=== PATIENT | male | born 1985 | race Caucasian/White ===

== ENCOUNTER 2019-04-25 15:12 | Emergency (ER) | payer OTHER ==
[~2019-04-25] VITALS: Ht 182.9 cm; Wt 102.1 kg
[2019-04-25 17:01] VITALS: BP 128/80
== END 2019-04-25 17:01 | disposition home or self-care (01) ==
LOC: M.ERS 15:12
DX: S62.617A Displaced fracture of proximal phalanx of left little finger, initial encounter for closed fracture (principal); W21.05XA Struck by basketball, initial encounter; Y93.89 Activity, other specified; Y92.89 Other specified places as the place of occurrence of the external cause; Y99.8 Other external cause status

== ENCOUNTER 2019-08-01 20:51 | Emergency (ER) | payer OTHER ==
[~2019-08-01] VITALS: Ht 182.9 cm; Wt 99.8 kg
[2019-08-01] MEDS ORDERED: CARAFATE 1 GM TA1 G1 PO (21:04)
[2019-08-01] MEDS ORDERED: LORAZEPAM 22 MG/1 ML PO (21:04)
[2019-08-01] MEDS ORDERED: OMEPRAZOLE40 MG PO (21:05)
[2019-08-01 21:33] VITALS: BP 136/84
== END 2019-08-01 21:33 ==
LOC: M.ERS 20:51
DX: R06.00 Dyspnea, unspecified (principal)

== ENCOUNTER 2019-11-10 22:42 | Emergency (ER) | payer OTHER ==
[~2019-11-10] VITALS: Ht 182.9 cm; Wt 97.5 kg
[~2019-11-10 22:42] MED LIST: CARAFATE 1 GM TA1 G1 PO; LORAZEPAM 22 MG/1 ML PO; OMEPRAZOLE40 MG PO
[2019-11-10] MEDS ORDERED: BUSPIRONE HCL10 MG PO (23:31)
[2019-11-10] MEDS ORDERED: PRILOSEC OTC20 MG PO (23:31)
[2019-11-11 00:03] LABS: ABSOLUTE BASOPHILS 0.1 thou/uL (0.0-0.2); ABSOLUTE EOSINOPHILS 0.1 thou/uL (0.0-0.7); ABSOLUTE LYMPHOCYTES 1.4 thou/uL (0.8-5.3); ABSOLUTE NEUTROPHILS 14.3 thou/uL (1.6-8.1); BASOPHILS 0.5 %; EOSINOPHILS 0.7 %; HEMATOCRIT 51.1 % (42.0-52.0); HEMOGLOBIN 17.7 gm/dL (14.0-18.0); LYMPHOCYTES 8.3 %; MCH 29.2 pg (26.0-34.0); MCHC 34.7 g/dL (28.0-37.0); MCV 84.1 fL (80.0-100.0); MONOCYTES 5.9 %; MPV 10.3 fl. (7.2-11.1); NUCLEATED RBCS 0 /100WBC; PLATELET COUNT* 227 thou/uL (150-400); POLYS 84.6 %; RBC 6.08 mil/uL (4.50-6.00); RDW-CV 13.1 % (10.5-14.5)
[2019-11-11 00:21] LABS: CALCIUM 8.9 mg/dL (8.5-10.1); CREATININE 1.3 mg/dL (0.6-1.3); POTASSIUM 3.7 mmol/L (3.5-5.1)
[2019-11-11 00:25] LABS: ALBUMIN 4.4 g/dL (3.4-5.0); TOTAL BILIRUBIN 0.4 mg/dL (<0.1-1.0)
[2019-11-11 01:35] LABS: URINE BILIRUBIN NEGATIVE (Negative); URINE BLOOD NEGATIVE (Negative); URINE CLARITY CLEAR; URINE COLOR YELLOW; URINE GLUCOSE-RANDOM NEGATIVE (Negative); URINE KETONES NEGATIVE (Negative); URINE LEUKOCYTES-REFLEX NEGATIVE (Negative); URINE NITRITE-REFLEX NEGATIVE (Negative); URINE PROTEIN NEGATIVE (Negative); URINE SPECIFIC GRAVITY >= 1.030 (1.005-1.030); URINE UROBILINOGEN 0.2 E.U./dl (0.2-1.0)
[2019-11-11 01:44] LABS: AMP/METHAMP Negative (Negative); BARBITURATES Negative (Negative); BENZODIAZEPINES Negative (Negative); COCAINE Negative (Negative); METHADONE Negative (Negative); OPIATES Negative (Negative); PCP Negative (Negative); THC Negative (Negative)
[2019-11-11] MEDS ORDERED: ZOFRAN4 MG PO (02:27)
[2019-11-11 02:44] VITALS: BP 118/70
== END 2019-11-11 02:44 | disposition home or self-care (01) ==
LOC: M.ERS 22:42
PROVIDERS: Emergency Medicine
DX: R11.2 Nausea with vomiting, unspecified (principal); R19.7 Diarrhea, unspecified; R10.13 Epigastric pain; Z79.899 Other long term (current) drug therapy

== ENCOUNTER 2020-02-14 17:22 | Emergency (ER) | payer OTHER ==
[~2020-02-14] VITALS: Ht 182.9 cm; Wt 102.1 kg
[~2020-02-14 17:22] MED LIST changes: +BUSPIRONE HCL10 MG PO; +PRILOSEC OTC20 MG PO; +ZOFRAN4 MG PO
[2020-02-14] MEDS ORDERED: CLONAZEPAM 0.50.5 M1 PO (17:35)
[2020-02-14] MEDS ORDERED: OXTELLAR XR300 MG PO (17:37)
[2020-02-14 17:51] LABS: ABSOLUTE BASOPHILS 0.1 thou/uL (0.0-0.2); ABSOLUTE EOSINOPHILS 0.2 thou/uL (0.0-0.7); ABSOLUTE LYMPHOCYTES 2.6 thou/uL (0.8-5.3); ABSOLUTE MONOCYTES 0.4 thou/uL (0.0-1.2); ABSOLUTE NEUTROPHILS 3.1 thou/uL (1.6-8.1); EOSINOPHILS 3.5 %; HEMATOCRIT 45.1 % (42.0-52.0); LYMPHOCYTES 40.9 %; MCHC 35.5 g/dL (28.0-37.0); MCV 81.8 fL (80.0-100.0); MONOCYTES 5.9 %; MPV 10.2 fl. (7.2-11.1); NUCLEATED RBCS 0 /100WBC; PLATELET COUNT* 201 thou/uL (150-400); POLYS 48.7 %; RBC 5.51 mil/uL (4.50-6.00); RDW-CV 13.3 % (10.5-14.5); WBC 6.3 thou/uL (4.0-11.0)
[2020-02-14 18:02] LABS: CREATININE 1.3 mg/dL (0.6-1.3)
[2020-02-14 18:07] LABS: ALBUMIN 4.1 g/dL (3.4-5.0); TOTAL BILIRUBIN 0.4 mg/dL (<0.1-1.0); TOTAL PROTEIN 7.1 g/dL (6.4-8.2)
[2020-02-14] MEDS ORDERED: ATIVAN1 M1 PO (18:27)
[2020-02-14 19:08] VITALS: BP 164/74
--- NOTE | 2020-02-15 11:22 | EKG ---
[place] [address] ELECTROCARDIOGRAM REPORT Name: MAGOSEPIDEH AYAKA Room: [facility]#: [id number] Admission: 02/14/20 Attend Phys: Discharge: 02/14/20 Date of : 81 Date of Service: 02/14/201739 Report #: [id number] THIS REPORT FOR: //name// [facility] ED Test Date: 2020-02-14 Test Time: 17:40:02 Pat Name: SEPIDEH MERCEDES Department: Room: Gender: Confectionery Maker: : 1985 Requested By: Henry Bhatia Order Number: [id number] MD: Mina Sanchez Measurements Intervals [place] Rate: 70 P: 28 [place]: 158 QRS: 62 QRSD: 128 T: -11 QT: 396 QTc: 428 Interpretive Statements Sinus rhythm Right bundle branch block Baseline wander in lead(s) V2,V6 No previous ECG available for comparison Electronically Signed On 02-15-2020 11:20:43 CDT by Mina Sacnhez [email or web address] <ELECTRONICALLY SIGNED> By: Rosalba Sanchez MD, [facility] 02/15/20 1120 174 174 Rosalba Sanchez MD, [facility] /EPI
== END 2020-02-14 19:10 | disposition home or self-care (01) ==
LOC: M.ERS 17:22
PROVIDERS: Emergency Medicine Emergency Medical Services
DX: F41.9 Anxiety disorder, unspecified (principal); R53.1 Weakness

== ENCOUNTER 2020-03-10 20:05 | Emergency (ER) | payer OTHER ==
[~2020-03-10] VITALS: Ht 182.9 cm; Wt 102.5 kg
[~2020-03-10 20:05] MED LIST changes: +ATIVAN1 M1 PO; +CLONAZEPAM 0.50.5 M1 PO; +OXTELLAR XR300 MG PO
[2020-03-10] MEDS ORDERED: NEURONTIN100 MG PO (20:18)
[2020-03-10 21:16] VITALS: BP 128/71
== END 2020-03-10 21:16 | disposition home or self-care (01) ==
LOC: M.ERS 20:05
DX: S93.491A Sprain of other ligament of right ankle, initial encounter (principal); W01.0XXA Fall on same level from slipping, tripping and stumbling without subsequent striking against object, initial encounter; Y93.89 Activity, other specified; Y92.89 Other specified places as the place of occurrence of the external cause; Y99.8 Other external cause status

== ENCOUNTER 2020-04-14 13:08 | Emergency (ER) | payer OTHER ==
[~2020-04-14] VITALS: Ht 182.9 cm; Wt 102.5 kg
[~2020-04-14 13:08] MED LIST changes: +NEURONTIN100 MG PO
[2020-04-14] MEDS ORDERED: INDERAL LA120 M1 PO (13:23)
[2020-04-14] MEDS ORDERED: TRAMADOL 50 MG50 MG PO (14:30)
[2020-04-14 14:50] VITALS: BP 125/79
== END 2020-04-14 14:50 | disposition home or self-care (01) ==
LOC: M.ERS 13:08
DX: M77.9 Enthesopathy, unspecified (principal); F41.9 Anxiety disorder, unspecified; Z79.899 Other long term (current) drug therapy

== ENCOUNTER 2020-09-23 21:48 | Emergency (ER) | payer OTHER ==
[~2020-09-23] VITALS: Ht 182.9 cm; Wt 99.8 kg
[~2020-09-23 21:48] MED LIST changes: +INDERAL LA120 M1 PO; +TRAMADOL 50 MG50 MG PO
[2020-09-23 21:54] VITALS: BP 132/91
== END 2020-09-23 23:25 | disposition home or self-care (01) ==
LOC: M.ERS 21:48
DX: U07.1 COVID-19 (principal); Z79.899 Other long term (current) drug therapy

== ENCOUNTER 2021-03-19 07:33 | Emergency (ER) | payer OTHER ==
[~2021-03-19] VITALS: Ht 182.9 cm; Wt 113.4 kg
[2021-03-19 08:45] VITALS: BP 160/91
== END 2021-03-19 08:45 | disposition home or self-care (01) ==
LOC: M.ERS 07:33
DX: J06.9 Acute upper respiratory infection, unspecified (principal); Z20.822 Contact with and (suspected) exposure to COVID-19; F41.9 Anxiety disorder, unspecified; Z79.899 Other long term (current) drug therapy

== ENCOUNTER 2021-09-14 22:39 | Emergency (ER) | payer OTHER ==
[~2021-09-14] VITALS: Ht 182.9 cm; Wt 113.4 kg
[2021-09-15] MEDS ORDERED: BACLOFEN5 MG PO (00:58)
[2021-09-15] MEDS ORDERED: MEDROLDOSEPACK PO (00:58)
[2021-09-15] MEDS ORDERED: MELOXICAM15 MG PO (00:58)
[2021-09-15 01:05] VITALS: BP 157/87
== END 2021-09-15 01:00 | disposition home or self-care (01) ==
LOC: M.ERS 22:39
DX: M54.50 Low back pain, unspecified (principal); F41.9 Anxiety disorder, unspecified; Z79.899 Other long term (current) drug therapy

== ENCOUNTER 2021-12-10 19:39 | Emergency (ER) | payer OTHER ==
[~2021-12-10] VITALS: Ht 182.9 cm; Wt 113.4 kg
[~2021-12-10 19:39] MED LIST changes: +BACLOFEN5 MG PO; +MEDROLDOSEPACK PO; +MELOXICAM15 MG PO
[2021-12-10 19:48] VITALS: BP 162/94
[2021-12-10] MEDS ORDERED: PROPRANOLOL 20M20 M1 PO (19:52)
[2021-12-10] MEDS ORDERED: HYDROXYZINE HCL25 M2 PO (19:52)
== END 2021-12-10 20:53 | disposition home or self-care (01) ==
LOC: M.ERS 19:39
DX: S93.402A Sprain of unspecified ligament of left ankle, initial encounter (principal); F41.9 Anxiety disorder, unspecified; Z79.1 Long term (current) use of non-steroidal anti-inflammatories (NSAID); Z79.899 Other long term (current) drug therapy; W18.39XA Other fall on same level, initial encounter; Y93.67 Activity, basketball; Y92.89 Other specified places as the place of occurrence of the external cause; Y99.8 Other external cause status